=== PATIENT | female | born 1995 | race Caucasian/White ===

== ENCOUNTER 2021-09-19 18:22 | Emergency (ER) | payer BC ==
[~2021-09-19] VITALS: Ht 167.6 cm; Wt 99.8 kg
[2021-09-19] MEDS ORDERED: LAMOTRIGINE250 MG PO (18:47)
[2021-09-19] MEDS ORDERED: ALBUTEROL2.5 MG/0.1 INH (18:47)
[2021-09-19 20:16] LABS: ABSOLUTE LYMPHOCYTES 1.9 thou/uL (0.8-5.3); ABSOLUTE MONOCYTES 0.4 thou/uL (0.0-1.2); ABSOLUTE NEUTROPHILS 1.8 thou/uL (1.6-8.1); BASOPHILS 0.2 %; EOSINOPHILS 1.1 %; HEMATOCRIT 40.5 % (37.0-47.0); LYMPHOCYTES 45.3 %; MCH 30.4 pg (26.0-34.0); MCHC 34.5 g/dL (28.0-37.0); MCV 88.1 fL (80.0-100.0); MONOCYTES 9.7 %; MPV 6.5 fl. (7.2-11.1); NUCLEATED RBCS 0 /100WBC; PLATELET COUNT* 115 thou/uL (150-400); POLYS 43.7 %; RDW-CV 12.5 % (10.5-14.5); WBC 4.2 thou/uL (4.0-11.0)
[2021-09-19 20:18] LABS: CALCIUM 8.9 mg/dL (8.5-10.1); CREATININE 0.6 mg/dL (0.6-1.3); POTASSIUM 3.6 mmol/L (3.5-5.1)
[2021-09-19 20:23] LABS: ALBUMIN 4.1 g/dL (3.4-5.0); TOTAL BILIRUBIN 0.5 mg/dL (<0.1-1.0); TOTAL PROTEIN 7.5 g/dL (6.4-8.2)
[2021-09-19] MEDS ORDERED: PREDNISONE50 MG PO (20:36)
[2021-09-19] MEDS ORDERED: DOXYCYCLINE 10100 M2 PO (20:36)
[2021-09-19] MEDS ORDERED: ALBUTEROL2.5 MG/0.5 INH (20:39)
[2021-09-19 20:45] VITALS: BP 117/67
--- NOTE | 2021-09-24 15:24 | EKG ---
[place] [address] ELECTROCARDIOGRAM REPORT Name: ALBERTINA JONES Room: [facility]#: [id number] Admission: 09/19/21 Attend Phys: Discharge: 09/19/21 Date of : [birth year] Date of Service: 09/19/21 1909 Report #: [id number] THIS REPORT FOR: //name// [facility] ED Test Date: 2021-09-19 Test Time: 19:09:23 Pat Name: ALBERTINA JONES Department: Room: Gender: Manager Plan: AIYANA : 1995 Requested By: Jose Dubois Order Number: [id number] Angelo MD: Jenaro Selby Measurements Intervals Percival Rate: 69 P: 47 AL: 119 QRS: 71 QRSD: 107 T: 44 QT: 402 QTc: 431 Interpretive Statements Sinus rhythm Borderline short AL interval Borderline Q waves in inferior leads No previous ECG available for comparison Electronically Signed On 09-24-2021 15:24:12 [employer] SPECIALIST by Jenaro Selby [email or web address] <ELECTRONICALLY SIGNED> By: Jenaro Selby MD, [facility] 09/24/21 1524 190 08 Jenaro Selby MD, [facility] /EPI
== END 2021-09-19 20:45 | disposition home or self-care (01) ==
LOC: M.ERS 18:22
PROVIDERS: Physician Assistant
DX: J45.901 Unspecified asthma with (acute) exacerbation (principal); Z20.822 Contact with and (suspected) exposure to COVID-19; Z79.899 Other long term (current) drug therapy